=== PATIENT | female | born 1995 | race Caucasian/White ===

== ENCOUNTER 2020-01-06 12:30 | Emergency (ER) | payer OTHER, SELFPAY ==
[2020-01-06] VITALS (24 sets, daily range): BP systolic 115–134; BP diastolic 71–91; PULSE 62–97; RESP 16; TEMP 37.5; O2SAT 98–100
[2020-01-06] MEDS: diphenhydrAMINE 50 MG/ML VIAL 25 MG IVP (12:40)
[2020-01-06] MEDS: FAMOTIDINE 20 MG/50 ML BAG 200 MG IVPB (12:40)
[2020-01-06] MEDS: methylPREDNISolone SUCC 125 MG VIAL IVP (12:41)
[2020-01-06] MEDS: Normal Saline 1,000 ML 1000 ML IV ×2 (12:41→13:30)
--- NOTE | 2020-01-06 13:34 | W.ED.GENAD ---
Discharge Plan Disposition Patient Disposition: HOME Condition: Stable Discharge Details Chief Complaint: Allergic Clinical Impression: Allergic reaction to bee sting Primary Care Provider: Shruti,Local ED Provider: Daren Dorsey Home Meds and New Rx's Prescriptions: New prednisone 20 mg tablet 60 mg PO DAILY 5 Days Qty: 15 RF: 0 Discharge Instructions Instructions: Insect Bite or Sting (ED), General Allergic Reaction (ED) Additional Instructions: Prednisone as directed. [id number] Benadryl and Pepcid as directed for the next 5 days. Please watch for new or worsening symptoms and return to the ER for any concerns. I do recommend reaching out your primary care provider on Wednesday for prompt outpatient reevaluation. Discharge Data Discharge Date/Time-TO BE ENTERED AT DEPARTURE: 01/06/20 15:05 Medical Decision Making 24-year-old female presenting having been stung on the tongue by a bee roughly 1 hour ago. Took a single Benadryl. I believe that she has mild tongue swelling because of the actual location of the sting and now because she is having a severe reaction. She appears well, nontoxic. She does have a mild rash and local tongue swelling. Will obtain IV access, give an additional 25 mg IV Benadryl, 20 of Pepcid, 125 Solu-Medrol and 1 L of IV fluid. No clear indication for epinephrine at this time. Patient was observed in the ER for over 2 hours. Each subsequent evaluation she reported feeling improvement. At the time she was discharged I saw absolutely no rash to her face, trunk. Scant remnants of a rash to her thighs did persist although they were extremely mild. No rash on her upper extremities either. Heart rate in the 60s, lungs clear to auscultation. There is no evidence of mouth, lip, tongue swelling. Airway is patent. She did receive a second liter of IV fluid while here in the ER and tolerated p.o. intake without difficulty. Discussed work-up and disposition with patient. I will provide a burst dose of steroids, she will continue taking [id number] Benadryl and Pepcid. Discussed that this did not appear to be a serious systemic reaction, no clear indication for EpiPen. Explained that I believe that her tongue had mild swelling secondary to the location of the sting itself. Patient is agreeable to this plan and has no additional questions or concerns. She was encouraged to watch for new or worsening symptoms and return immediately to the ER, otherwise follow-up with her primary care provider, calling them on Wednesday. HPI General Mode of arrival: ambulatory. Date/Time Provider Initiated Documentation: 01/06/20 12:34. Limitations to Documentation: no limitations. Information obtained by: patient. HPI Narrative: This is a 24-year-old female who reports that she was stung by a bee on her tongue approximately 1 hour ago. She went to take a sip out of a cup and did not notice the bee. She has mild swelling and pain at the site of the bee sting but not globally across her entire tongue. She reports a mild rash starting that is nearly body wide but worse on her arms and legs. The rash is itchy in nature. She denies any lip swelling, throat swelling, difficulty speaking or breathing. Denies shortness of breath or wheezing. She has never been stung in the past. She denies any significant past medical history. She did take a single 1 tablet 25 mg Benadryl prior to arrival. Related Data Home Medications Medication Instructions Recorded Confirmed prednisone 60 mg PO DAILY 5 Days #15 tab 01/06/20 Previous Rx's Medication Instructions Recorded prednisone 60 mg PO DAILY 5 Days #15 tab 01/06/20 Allergies Allergy/AdvReac Type Severity Reaction Status Date / Time No Known Allergies Allergy Unverified 01/06/20 12:38 General Stated Complaint: Allergic PORSHA: 3 Review of Systems Constitutional Constitutional: Denies headache(s) and Denies weakness Eyes Eyes: Denies itchy eyes ENT Ears, Nose, Mouth, and Throat: Denies headache(s), Denies lip swelling, Denies throat swelling and Reports tongue swelling Cardiovascular Cardiovascular: Denies chest pain and Denies dyspnea Respiratory Respiratory: Denies cough, Denies dyspnea and Denies wheezing Gastrointestinal Gastrointestinal: Denies abdominal pain, Denies nausea and Denies vomiting Musculoskeletal Musculoskeletal: Denies arthralgias, Denies numbness and Denies tingling Integumentary/Breasts Skin/Breast: Reports rash Neurologic Neurologic: Denies headache(s), Denies numbness, Denies tingling and Denies weakness Allergic/Immunologic Allergic/Immunologic: Denies itchy eyes, Denies lip swelling, Denies throat swelling, Reports tongue swelling and Denies wheezing [facility] Social History Smoking/Tobacco Use Status: Current-Occasional Tobacco Type: pipe Alcohol Intake: current Alcohol Intake frequency: holidays/special occasions only Substance use type: marijuana Do you feel safe at home: Yes Do you feel safe in your relationship?: Yes Exam Const General: cooperative, healthy appearing, comfortable and no acute distress Orientation: alert, awake and oriented x3 HENMT Head: normal to inspection, normocephalic and atraumatic General nose exam: external nose normal Face and sinus: normal facial exam Mouth: moist mucous membranes Mouth/tongue images: 1. What appears to be a single puncture wound, no notable stinger. There is localized minimal swelling and discomfort. Airway is patent Throat: posterior oropharynx normal Eyes Conjunctivae: conjunctivae normal Sclera: sclerae normal Neck Neck: normal visual inspection, full ROM, trachea midline and supple Resp Effort & Inspection: normal respiratory effort and able to speak in complete sentences Auscultation: clear to auscultation bilaterally Cardio Rate: regular rate Rhythm: regular rhythm GI Palpation: soft and nontender Skin Other: Scant, patchy hives bilateral upper arms and bilateral upper legs. I see no rash on her trunk or face. Neuro General: patient alert, patient awake, patient oriented x3, moves all extremities and no focal motor deficits Cranial Nerves: CN's II-XI intact bilaterally Cognition: normal cognition Speech: speech normal Gait: normal gait Motor: muscle tone normal throughout and strength 5/5 throughout Sensory Exam: no sensory deficits noted Extrem General: full ROM and capillary refill normal Psych Appearance: grossly normal Mental Status: mental status grossly normal Course Vital Signs Vital signs: Vital Signs Temperature 37.5 C 01/06/20 12:33 Respiratory Rate 16 01/06/20 12:33 Blood Pressure 134/91 H 01/06/20 12:33 Pulse Oximetry 98 01/06/20 12:33 Temperature 37.5 C 01/06/20 12:33 Temperature Source Tympanic 01/06/20 12:33 Respiratory Rate 16 01/06/20 12:33 Respiratory Effort Non-Labored 01/06/20 12:37 Blood Pressure 134/91 H 01/06/20 12:33 Blood Pressure Position Sitting 01/06/20 12:33 Pulse Oximetry 98 01/06/20 12:33 Oxygen Delivery Method Room Air 01/06/20 12:33 Oxygen Flow Rate 0 01/06/20 12:33 Pain Level 6 01/06/20 12:33
== END 2020-01-06 15:05 | disposition home or self-care (01) ==
LOC: ER 15:03
PROVIDERS: Emergency Provider Physician Assistant
DX: T63.441A Toxic effect of venom of bees, accidental (unintentional), initial encounter (principal); R21 Rash and other nonspecific skin eruption; R22.0 Localized swelling, mass and lump, head; L29.9 Pruritus, unspecified
CPT/HCPCS: 36415; 96361; 96374; 96375; 99284; J1200; J2930